=== PATIENT | female | born 1945 | race Caucasian/White ===

== ENCOUNTER 2021-12-30 09:53 | Outpatient (CLI) | payer MEDICARE, SELFPAY ==
[2021-12-30 16:20] LABS: Add Urine Microscopic? YES; Appearance Urine Cloudy (Clear); Bacteria Urine Trace /hpf; Bilirubin Urine Negative (Negative); Blood Urine Negative (Negative); Color Urine Yellow (Yellow); Glucose Urine UA Negative (Negative); Ketones Urine Negative (Negative); Leukocyte Esterase Ur 3+ LEU/UL (Negative); Mucus Urine Rare /lpf; Nitrate Urine Negative (Negative); Protein Urine Negative (Negative); RBC Urine 0-2 /hpf (0-2); Specific Grav Ur 1.012 (1.001-1.035); Squamous Epithelial Cell Urine Few /hpf (Few); Urobilinogen Urine Negative mg/dL (<2.0)
[2021-12-30 16:35] LABS: Free T4 Free Thyroxine 1.51 ng/mL (0.78-2.19)
[2021-12-30 16:48] LABS: Thyroid Stimulating Hormone 0.559 uIU/mL (0.465-4.680)
== END 2021-12-30 09:54 | disposition home or self-care (01) ==
LOC: ANHWCLAB 10:13
PROVIDERS: Visit Provider Internal Medicine Endocrinology, Diabetes & Metabolism
DX: E04.1 Nontoxic single thyroid nodule (principal); R35.0 Frequency of micturition
CPT/HCPCS: 36415; 81001; 84439; 84443; 87086